=== PATIENT | male | born 1945 | race Caucasian/White ===

== ENCOUNTER 2022-09-01 09:33 | Emergency (ER) | payer MEDICARE ==
[~2022-09-01] VITALS: Ht 180.3 cm; Wt 59.0 kg
[2022-09-01] MEDS ORDERED: Prinivil10 MG PO (09:47)
[2022-09-01] MEDS ORDERED: DABI150C PO (09:47)
[2022-09-01 10:41] VITALS: BP 141/100
== END 2022-09-01 10:41 | disposition home or self-care (01) ==
LOC: ER 09:33
DX: I83.891 Varicose veins of right lower extremity with other complications (principal); I10 Essential (primary) hypertension
CPT/HCPCS: 99283